=== PATIENT | female | born 1990 | race Caucasian/White ===

== ENCOUNTER 2016-10-21 13:09 | Emergency (ER) | payer OTHER ==
[2016-10-21] MEDS ORDERED: SODIUM CHLORIDE 0.9% 1,000 ML IV ONE (13:48)
[2016-10-21] MEDS ORDERED: ONDANSETRON 4 MG/2 ML VIAL IVP STA (14:22)
[2016-10-21] MEDS ORDERED: DICYCLOMINE 10 MG CAPSULE PO STA (14:23)
[2016-10-21] MEDS ORDERED: ONDANSETRON 4 MG/2 ML VIAL ONE (14:25)
[2016-10-21] MEDS ORDERED: DICYCLOMINE 10 MG CAPSULE PO ONE (14:26)
[2016-10-21] MEDS ORDERED: KETOROLAC 60 MG/2 ML VIAL IVP STA (15:31)
[2016-10-21] MEDS ORDERED: KETOROLAC 60 MG/2 ML VIAL ONE (15:34)
== END 2016-10-21 16:34 | disposition home or self-care (01) ==
DX: A08.4 Viral intestinal infection, unspecified (principal)
CPT/HCPCS: 36415; 80053; 83690; 85025; 96361; 96374; 96375; 99283; 99284; A9270